=== PATIENT | female | born 1955 | race Caucasian/White ===

== ENCOUNTER → 2020-03-04 | Day surgery (SDC) | payer MEDICARE ==
[2020-03-01 10:57] VITALS: BMI 34.2
[~2020-03-04] MED LIST: Acetaminophen/Codeine 30-300mg Tablet ONE; Fentanyl 100 MCG/2 ML VIAL ONE; Heparin 10,000 UNITS/ 10 ML VIAL ONE; Iopamidol 370 76% 100 ML VIAL ONE; Iopamidol 370 76% 50 ML VIAL FS ONE; Midazolam HCl 2 mg/2 ml Vial ONE; Protamine Sulfate 50 MG/5 ML VIAL ONE
[2020-03-04 08:02] LABS: Cardiac Risk 4.7 (Less than 4.5)
== END ==
LOC: CCL 06:38
PROVIDERS: ATTEND Internal Medicine Cardiovascular Disease
PROC: 4A023N7 Measurement of Cardiac Sampling and Pressure, Left Heart, Percutaneous Approach (ICD-10-PCS; principal; 2020-03-04)
PROC: B2111ZZ Fluoroscopy of Multiple Coronary Arteries using Low Osmolar Contrast (ICD-10-PCS; 2020-03-04)
DX: R94.39 Abnormal result of other cardiovascular function study (principal); I11.9 Hypertensive heart disease without heart failure; R06.02 Shortness of breath; I48.91 Unspecified atrial fibrillation; E89.0 Postprocedural hypothyroidism; Z86.711 Personal history of pulmonary embolism; Z82.49 Family history of ischemic heart disease and other diseases of the circulatory system; Z79.01 Long term (current) use of anticoagulants; Z79.899 Other long term (current) drug therapy; Z88.1 Allergy status to other antibiotic agents; Z88.2 Allergy status to sulfonamides; Z98.890 Other specified postprocedural states
CPT/HCPCS: 80061; 85347; 93458; 99152; J1644; J2250; J2720; J3010; Q9967

== ENCOUNTER 2020-04-20 13:05 | Outpatient (CLI) | payer MEDICARE ==
--- NOTE | 2020-04-20 13:49 | RAD ---
TWO VIEW CHEST: HISTORY: Dyspnea. COMPARISON: C chest 01/25/2016. FINDINGS: Lungs appear clear. There is cardiomegaly and mild vascular engorgement. No infiltrate or effusion. There is a fixed diaphragmatic hernia which was present on the prior CT. A calcified granuloma in the right lung base is also stable. IMPRESSION: 1. Fixed diaphragmatic hernia again noted. 2. No acute lung process. POS: AH
== END 2020-04-20 13:06 | disposition home or self-care (01) ==
LOC: BICRAD 13:05
PROVIDERS: ATTEND Internal Medicine Pulmonary Disease
DX: R06.00 Dyspnea, unspecified (principal); K44.9 Diaphragmatic hernia without obstruction or gangrene
CPT/HCPCS: 71046